=== PATIENT | male | born 1985 | race Caucasian/White ===

== ENCOUNTER 2021-04-20 09:24 | Emergency (ER) | payer OTHER ==
[~2021-04-20] VITALS: Ht 175.3 cm; Wt 81.7 kg
[2021-04-20] MEDS ORDERED: IBUPROFEN 800800 MG PO (09:47)
[2021-04-20] MEDS ORDERED: AMOXICILLIN 50500 MG PO (09:47)
[2021-04-20 09:53] VITALS: BP 160/92
== END 2021-04-20 09:54 | disposition home or self-care (01) ==
LOC: M.ERS 09:24
DX: K02.9 Dental caries, unspecified (principal)

== ENCOUNTER 2021-05-14 12:20 | Emergency (ER) | payer OTHER ==
[~2021-05-14] VITALS: Ht 175.3 cm; Wt 86.2 kg
[~2021-05-14 12:20] MED LIST: AMOXICILLIN 50500 MG PO; IBUPROFEN 800800 MG PO
[2021-05-14 18:04] LABS: ABSOLUTE BASOPHILS 0.1 thou/uL (0.0-0.2); ABSOLUTE EOSINOPHILS 0.2 thou/uL (0.0-0.7); ABSOLUTE LYMPHOCYTES 2.9 thou/uL (0.8-5.3); ABSOLUTE MONOCYTES 0.8 thou/uL (0.0-1.2); ABSOLUTE NEUTROPHILS 3.6 thou/uL (1.6-8.1); HEMATOCRIT 42.2 % (42.0-52.0); HEMOGLOBIN 13.8 gm/dL (14.0-18.0); LYMPHOCYTES 38.5 %; MCH 29.8 pg (26.0-34.0); MCHC 32.6 g/dL (28.0-37.0); MCV 91.3 fL (80.0-100.0); MONOCYTES 10.2 %; MPV 8.1 fl. (7.2-11.1); NUCLEATED RBCS 0 /100WBC; PLATELET COUNT* 442 thou/uL (150-400); POLYS 47.3 %; RBC 4.62 mil/uL (4.50-6.00); RDW-CV 14.1 % (10.5-14.5); WBC 7.6 thou/uL (4.0-11.0)
[2021-05-14 18:16] LABS: CALCIUM 8.5 mg/dL (8.5-10.1); CREATININE 0.9 mg/dL (0.6-1.3)
[2021-05-14 18:20] LABS: ALBUMIN 4.1 g/dL (3.4-5.0); TOTAL BILIRUBIN 0.3 mg/dL (<0.1-1.0); TOTAL PROTEIN 7.8 g/dL (6.4-8.2)
[2021-05-14 20:03] VITALS: BP 163/98
== END 2021-05-14 20:03 | disposition home or self-care (01) ==
LOC: M.ERS 12:20
PROVIDERS: Nurse Practitioner Family
DX: R07.0 Pain in throat (principal); R13.10 Dysphagia, unspecified